=== PATIENT | male | born 1985 | race Caucasian/White ===

== ENCOUNTER 2023-03-12 15:38 | Emergency (ER) | payer OTHER ==
[~2023-03-12] VITALS: Ht 175.3 cm; Wt 83.9 kg
[2023-03-12 15:46] VITALS: BP 152/103
== END 2023-03-12 17:10 | disposition home or self-care (01) ==
LOC: ER 15:38
DX: T18.9XXA Foreign body of alimentary tract, part unspecified, initial encounter (principal); T85.618A Breakdown (mechanical) of other specified internal prosthetic devices, implants and grafts, initial encounter
CPT/HCPCS: 70360; 99283-25